=== PATIENT | female | born 1995 | race Caucasian/White ===

== ENCOUNTER 2018-07-09 22:38 | Emergency (ER) | payer OTHER ==
[2018-07-09 23:03] VITALS: TEMP 97.8; O2SAT 98
[2018-07-09] MEDS ORDERED: CIPROFLOXACIN 500 MG TAB PO ONE (23:35)
--- NOTE | 2018-07-09 23:51 | RAD ---
EXAM: Three view(s) of the cervical spine. INDICATION: Pain, cervical spine. COMPARISON: None. FINDINGS: Technical: On the lateral view, the craniocervical junction to the C7-T1 level is visualized. Alignment: Intact. Fracture: No acute fracture or subluxation. Odontoid process: Intact. Prevertebral soft tissues: Within normal limits. IMPRESSION: 1. No acute fracture. EXAM: Acute abdominal series. INDICATION: Abdominal pain, acute. COMPARISON: None. FINDINGS: Cardiac silhouette: Unremarkable. Ijeoma: Unremarkable. Lobar consolidation: None. Pleural effusion: None. Pneumothorax: None. Other: None. Intraperitoneal free air: Negative. Bowel: No dilated loops of small bowel or air-fluid levels. Bones: Unremarkable. Other: None. IMPRESSION: 1. Nonspecific, nonobstructed bowel gas pattern. Electronically signed by: Arjun Moreno MD 07/09/2018 11:50 PM CDT Workstation: [id number]
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
[2018-07-10] MEDS ORDERED: HYDROcodone 5MG/APAP 325MG 1 EA TAB PO ONE (00:12)
[2018-07-10] MEDS ORDERED: HYDROcodone 5MG/APAP 325MG 1 EA TAB ONE (00:14)
[2018-07-10 02:12] VITALS: BP 119/74
== END 2018-07-10 01:45 | disposition left against medical advice (07) ==
LOC: ER 22:38
DX: R07.1 Chest pain on breathing (principal); M25.511 Pain in right shoulder; T14.8XXA Other injury of unspecified body region, initial encounter; Z53.29 Procedure and treatment not carried out because of patient's decision for other reasons; Z88.0 Allergy status to penicillin; V49.88XA Car occupant (driver) (passenger) injured in other specified transport accidents, initial encounter; Y92.410 Unspecified street and highway as the place of occurrence of the external cause